=== PATIENT | female | born 1960 | race African-American/Black ===

== ENCOUNTER 2023-07-23 11:31 | Emergency (ER) | payer MEDICAID, OTHER ==
[~2023-07-23] VITALS: Ht 170.2 cm; Wt 68.0 kg
[~2023-07-23 11:31] MED LIST: HYDR-1348
[2023-07-23 11:37] VITALS: BP 100/64; RESP 20; TEMP 98.3; O2SAT 98
[2023-07-23 11:43] VITALS: PULSE 74
[2023-07-23 12:20] LABS: DIFFERENTIAL COMMENT 0; EOSINOPHILS % 1.2 % (0.0-5.0); HEMATOCRIT. 36.7 % (36.0-48.0); HEMOGLOBIN. 11.6 g/dL (12.0-16.0); LYMPHOCYTES % 41.7 % (20.0-50.0); MEAN CORPUSCULAR HEMOGLOBIN 24.1 pg (28.0-32.0); MEAN CORPUSCULAR HGB CONC 31.7 g/dL (31.0-37.0); MEAN CORPUSCULAR VOLUME 75.9 fL (81.0-99.0); MEAN PLATELET VOLUME 7.9 fl (7.4-10.4); MONOCYTES % 8.6 % (2.0-8.0); NEUTROPHILS % 47.5 % (40.0-76.0); PLATELET 234 x1000/uL (130-400); RED BLOOD CELL COUNT 4.83 mill/uL (4.2-5.4); RED CELL DISTRIBUTION WIDTH 15.3 % (11.6-14.6); WHITE BLOOD COUNT 3.7 x1000/uL (4.5-11.0)
[2023-07-23 12:41] LABS: ALANINE AMINOTRANSFERASE 11 IU/L (10-49); ALBUMIN 4.5 g/dL (3.2-4.8); ASPARTATE AMINOTRANSFERASE 16 IU/L (<34); BILIRUBIN TOTAL 0.3 mg/dL (0.1-1.0); CALCIUM 9.9 mg/dL (8.7-10.4); CARBON DIOXIDE 28 mEq/L (21-32); CHLORIDE 106 mEq/L (98-107); CREATININE 0.9 mg/dL (0.6-1.0); GLUCOSE 92 mg/dL (70-105); POTASSIUM 3.4 mEq/L (3.5-5.1); PROTEIN TOTAL 7.7 g/dL (6.0-8.3); SODIUM 142 mEq/L (136-145); UREA NITROGEN BLOOD 22 mg/dL (9-23)
[2023-07-23 13:02] LABS: TROPONIN I HIGH SENSITIVITY 42 ng/L (3.0-34)
[2023-07-23] MEDS ORDERED: HYDROCODONE/ACETAMINOPHEN 5/325MG TABLET PO ONE (14:15)
[2023-07-23] MEDS ORDERED: ASPIRIN 81MG EC TABLET PO ONE (14:15)
== END 2023-07-23 17:44 | disposition left against medical advice (07) ==
LOC: ER 13:11 → EDBEDREQTM 16:11 → EDBEDREQ 16:11 → CANBEDREQ 17:43 → ER 17:44
DX: M25.512 Pain in left shoulder (principal); R07.89 Other chest pain; R79.89 Other specified abnormal findings of blood chemistry; I10 Essential (primary) hypertension; Z90.710 Acquired absence of both cervix and uterus; Z88.0 Allergy status to penicillin
CPT/HCPCS: 36415; 80053; 84484; 85025; 93005; 99284

== ENCOUNTER 2023-07-27 10:48 | Emergency (ER) | payer OTHER ==
[~2023-07-27] VITALS: Ht 170.2 cm; Wt 68.0 kg
[2023-07-27 10:59] VITALS: O2SAT 98
[2023-07-27 11:38] LABS: BASOPHILS % 0.4 % (0.0-2.0); DIFFERENTIAL COMMENT 0; EOSINOPHILS % 0.9 % (0.0-5.0); HEMATOCRIT. 34.8 % (36.0-48.0); HEMOGLOBIN. 11.2 g/dL (12.0-16.0); LYMPHOCYTES % 38.7 % (20.0-50.0); MEAN CORPUSCULAR HEMOGLOBIN 24.2 pg (28.0-32.0); MEAN CORPUSCULAR HGB CONC 32.1 g/dL (31.0-37.0); MEAN CORPUSCULAR VOLUME 75.5 fL (81.0-99.0); MONOCYTES % 8.4 % (2.0-8.0); NEUTROPHILS % 51.6 % (40.0-76.0); PLATELET 224 x1000/uL (130-400); RED BLOOD CELL COUNT 4.61 mill/uL (4.2-5.4); RED CELL DISTRIBUTION WIDTH 15.6 % (11.6-14.6); WHITE BLOOD COUNT 3.9 x1000/uL (4.5-11.0)
[2023-07-27 11:50] LABS: PROTHROMBIN TIME 10.6 sec (9.6-11.0)
[2023-07-27 11:54] LABS: ALANINE AMINOTRANSFERASE 7 IU/L (10-49); ALBUMIN 4.3 g/dL (3.2-4.8); ASPARTATE AMINOTRANSFERASE 16 IU/L (<34); BILIRUBIN TOTAL 0.3 mg/dL (0.1-1.0); CALCIUM 9.4 mg/dL (8.7-10.4); CARBON DIOXIDE 28 mEq/L (21-32); CHLORIDE 108 mEq/L (98-107); CREATININE 0.9 mg/dL (0.6-1.0); GLUCOSE 79 mg/dL (70-105); POTASSIUM 3.4 mEq/L (3.5-5.1); SODIUM 142 mEq/L (136-145); UREA NITROGEN BLOOD 15 mg/dL (9-23)
[2023-07-27 12:12] LABS: TROPONIN I HIGH SENSITIVITY 44 ng/L (3.0-34)
[2023-07-27] MEDS ORDERED: ASPIRIN 81MG TABLET PO ONE (15:15)
[2023-07-27] MEDS ORDERED: HYDROCODONE/ACETAMINOPHEN 5/325MG TABLET PO ONE (15:15)
[2023-07-27 15:20] VITALS: BP 102/69; PULSE 69; RESP 16; TEMP 98.2
== END 2023-07-27 15:34 | disposition short-term general hospital (02) ==
LOC: ER 10:48 → EDBEDREQ 12:28 → CANBEDREQ 13:43 → ER 15:34
DX: I21.3 ST elevation (STEMI) myocardial infarction of unspecified site (principal); R79.89 Other specified abnormal findings of blood chemistry; I10 Essential (primary) hypertension; Z88.0 Allergy status to penicillin; Z88.2 Allergy status to sulfonamides
CPT/HCPCS: 80053; 83880; 85025; 85610; 84484; 36415; 71045; 93005; 99291; Z7610 ×2

== ENCOUNTER 2025-04-23 19:52 | Emergency (ER) | payer MEDICARE, OTHER ==
[~2025-04-23 19:52] MED LIST changes: +AMLO1CAP PO; +CHLO25TA2 MT; +CHOL200074 PO; +CYAN-35 MT; +CYCL10TA21 PO; +DOCU-422 MT; +FERR325T6 MT; +FLUT16SP15 BOTHNSTRLS; -HYDR-1348; +LORA5TAB8 MT; +METO25TA6 PO; +PY25 MT; +QUET50TA23 MT; +VITA400T9 MT
== END 2025-04-23 21:05 | disposition left against medical advice (07) ==
LOC: ER 19:52
DX: R07.89 Other chest pain (principal); Z53.21 Procedure and treatment not carried out due to patient leaving prior to being seen by health care provider